=== PATIENT | male | born 1960 | race Caucasian/White ===

== ENCOUNTER 2024-01-30 15:55 | Outpatient (REF) | payer MEDICAID, SELFPAY ==
[2024-01-30 21:27] LABS: ALT 48 U/L (16-63); AST 29 U/L (15-37); Albumin 3.7 g/dL (3.4-5.0); Alkaline Phosphatase 71 U/L (46-116); Anion Gap 10.5 mmol/L (3-11); BUN 17 mg/dL (7-18); Bilirubin, Total 0.4 mg/dL (0.2-1.0); CO2 27.5 mmol/L (21.0-32.0); CREATININE 0.8 mg/dL (0.70-1.30); Calcium 9.3 mg/dL (8.5-10.1); Calculated LDL 134 mg/dL (<100); Chloride 102 mmol/L (98-107); Cholesterol 222 mg/dL (<200); Estimated GFR 98.83 (mL/min/1.73m2); Glucose 114 mg/dL (74-106); HDL Cholesterol 48 mg/dL (40-60); Potassium 4.1 mmol/L (3.5-5.1); Sodium 140 mmol/L (136-145); Total Protein 7.1 g/dL (6.4-8.2); Triglyceride 202 mg/dL (<150)
[2024-01-30 21:32] LABS: Hemoglobin A1C 6.3 % (<5.7)
== END 2024-01-30 15:56 | disposition home or self-care (01) ==
LOC: NCHCN 15:55
PROVIDERS: Visit Provider Family Medicine
DX: E11.9 Type 2 diabetes mellitus without complications (principal); E78.5 Hyperlipidemia, unspecified
CPT/HCPCS: 80053; 80061; 83036

== ENCOUNTER 2025-02-03 01:54 | Outpatient (CLI) | payer MEDICARE, SELFPAY ==
--- NOTE | 2025-02-03 | DI.RAD_ITS ---
Exam(s) XR HIP LT COMPLETE AP PELVIS EXAM: XR HIP LT COMPLETE AP PELVIS CLINICAL HISTORY: Pain in lt hip, M25.552. TECHNIQUE: 2D digital imaging was performed. Two views. COMPARISON: No exams were available for comparison FINDINGS: BONES: No acute fracture is present. There is severe flattening of the left femoral head and some re modeling of the left acetabulum. There are severe degenerative changes left hip joint with sclerosis and subchondral cysts on both sides of the joint. JOINTS: There is severe severe narrowing of the left hip joint space, with a bone on bone appearance. No dislocation present. The SI joints and pubic symphysis are intact. No significant degenerative c hanges. The right hip shows minimal degenerative changes. Minimal degenerative changes are present a t the SI joints. SOFT TISSUE: Normal. IMPRESSION: End-stage degenerative changes of the left hip. There is significant flattening of the femoral head as well as multiple subchondral cyst formation. DATA REPOSITORY: RADIATION DOSE DELIVERED:
== END 2025-02-03 02:14 ==
PROVIDERS: PCP Family Medicine; Visit Provider Family Medicine
DX: M16.12 Unilateral primary osteoarthritis, left hip (principal)
CPT/HCPCS: 73502

== ENCOUNTER 2025-02-10 15:23 | Outpatient (REF) | payer MEDICARE, SELFPAY ==
[2025-02-10 21:52] LABS: ALT 49 U/L (16-63); AST 31 U/L (15-37); Albumin 3.9 g/dL (3.4-5.0); Alkaline Phosphatase 74 U/L (46-116); Anion Gap 7.5 mmol/L (3-11); BUN 14 mg/dL (7-18); Bilirubin, Total 0.5 mg/dL (0.2-1.0); CO2 28.5 mmol/L (21.0-32.0); Calcium 9.5 mg/dL (8.5-10.1); Calculated LDL 76 mg/dL (<100); Chloride 103 mmol/L (98-107); Cholesterol 169 mg/dL (<200); Creatine Kinase 145 U/L (39-308); Estimated GFR 83.52 (mL/min/1.73m2); Glucose 148 mg/dL (74-106); HDL Cholesterol 57 mg/dL (>or=40); Potassium 3.9 mmol/L (3.5-5.1); Sodium 139 mmol/L (136-145); Total Protein 7.1 g/dL (6.4-8.2); Triglyceride 182 mg/dL (<150)
== END 2025-02-10 15:24 | disposition home or self-care (01) ==
LOC: NCHCN 15:23
PROVIDERS: PCP Family Medicine; Visit Provider Family Medicine
DX: E78.5 Hyperlipidemia, unspecified (principal); I10 Essential (primary) hypertension; M79.18 Myalgia, other site
CPT/HCPCS: 80053; 80061; 82550

== ENCOUNTER → 2025-03-04 09:55 | Outpatient (BNVA) | payer MEDICARE, SELFPAY | PROVIDERS: PCP Family Medicine; Referring Provider Family Medicine; Visit Provider Podiatrist | DX: L97.521 Non-pressure chronic ulcer of other part of left foot limited to breakdown of skin (principal); L60.3 Nail dystrophy; B35.1 Tinea unguium; R60.0 Localized edema; I87.2 Venous insufficiency (chronic) (peripheral); G62.9 Polyneuropathy, unspecified; I83.93 Asymptomatic varicose veins of bilateral lower extremities; L65.9 Nonscarring hair loss, unspecified; L53.8 Other specified erythematous conditions; L60.8 Other nail disorders; R23.8 Other skin changes; L60.2 Onychogryphosis; L85.8 Other specified epidermal thickening | CPT/HCPCS: 11721; 97597 ==

== ENCOUNTER 2025-03-05 13:56 | Outpatient (CLI) | payer MEDICARE, SELFPAY ==
--- NOTE | 2025-03-05 11:15 | DI.RAD_ITS ---
Exam(s) XR PELVIS AP EXAM: XR PELVIS AP CLINICAL HISTORY: LEFT HIP PAIN. TECHNIQUE: 2D digital imaging was performed.One images were obtained. COMPARISON: CR XR HIP LT COMPLETE AP PELVIS from 02/03/2025 FINDINGS: Findings in the left hip appears stable. There is loss of the superior joint space. There is loss o f volume of the femoral head particularly its articular surface. Subchondral cysts and flattening ar e noted. There osteophytes seen at the lateral aspect of the acetabulum. The right hip is fairly we ll maintained with minimal arthrosis. IMPRESSION: Marked deformity of the left hip which may be secondary to avascular necrosis and/or in stage degener ative changes. Posttraumatic changes or infection cannot be entirely excluded. DATA REPOSITORY: RADIATION DOSE DELIVERED:
== END 2025-03-05 13:57 | disposition home or self-care (01) ==
LOC: DIORS 13:56
PROVIDERS: PCP Family Medicine; Referring Provider Family Medicine; Visit Provider Physician Assistant
DX: M25.552 Pain in left hip (principal); M16.12 Unilateral primary osteoarthritis, left hip
CPT/HCPCS: 99214; 72170

== ENCOUNTER → 2025-03-25 11:23 | Outpatient (BNVA) | payer MEDICARE, SELFPAY | PROVIDERS: PCP Family Medicine; Referring Provider Family Medicine; Visit Provider Podiatrist | DX: L97.521 Non-pressure chronic ulcer of other part of left foot limited to breakdown of skin (principal); R60.0 Localized edema; I87.2 Venous insufficiency (chronic) (peripheral); B35.1 Tinea unguium; L60.3 Nail dystrophy; G62.9 Polyneuropathy, unspecified | CPT/HCPCS: 99213 ==

== ENCOUNTER 2025-04-27 15:02 | Outpatient (REF) | payer MEDICARE, SELFPAY ==
[2025-04-27 15:17] LABS: HCT 42.4 % (40.0-50.0); HGB 14.6 g/dL (13.5-17.5); MCH 30.8 pg (27.0-33.0); MCHC 34.4 % (32.0-36.0); MCV 90 fL (80-95); MPV 11.1 fL (8.0-11.0); Platelet Count 193 10^3/uL (130-400); RBC 4.74 10^6/uL (4.36-5.78); RDW 12.4 % (11.8-14.1); RDW-SD 41.0 fL; WBC 5.95 10^3/uL (4.4-10.8)
[2025-04-27 15:31] LABS: Anion Gap 10.1 mmol/L (3-11); BUN 18 mg/dL (7-18); CO2 27.9 mmol/L (21.0-32.0); Calcium 9.4 mg/dL (8.5-10.1); Chloride 101 mmol/L (98-107); Estimated GFR 106.46 (mL/min/1.73m2); Glucose 105 mg/dL (74-106); Potassium 3.8 mmol/L (3.5-5.1); Sodium 139 mmol/L (136-145)
== END 2025-04-27 15:03 | disposition home or self-care (01) ==
LOC: LBN 15:02
PROVIDERS: PCP Family Medicine; Visit Provider Student in an Organized Health Care Education/Training Program
DX: M16.12 Unilateral primary osteoarthritis, left hip (principal); Z01.818 Encounter for other preprocedural examination
CPT/HCPCS: 80048; 85027

== ENCOUNTER 2025-05-06 08:36 | Day surgery (SDC) | payer MEDICARE, SELFPAY ==
[2025-05-06] VITALS (37 sets, daily range): BP systolic 118–197; BP diastolic 20–94; PULSE 58–78; RESP 12–25; TEMP 36.1–36.7; O2SAT 94–100; BMI 40.8
--- NOTE | 2025-05-06 07:31 | W.PM.DSUDISC ---
Date of service: 05/06/25 Discharge Plan Disposition Patient Disposition: Home Condition: Good Discharge Details Reason For Visit: L THR Attending Provider: Erwin Mg Primary Care Provider: Yolanda Morley Home Meds and New Rx's Prescriptions: New celecoxib 200 mg capsule 200 mg PO BID Qty: 60 0RF aspirin 81 mg tablet,delayed release (DR/EC) 81 mg PO BID Qty: 60 0RF acetaminophen 500 mg tablet 1,000 mg PO TID Qty: 90 3RF pantoprazole 40 mg tablet,delayed release (DR/EC) 40 mg PO DAILY Qty: 14 0RF dexamethasone 4 mg tablet 4 mg PO DAILY Qty: 2 0RF docusate sodium 100 mg capsule 100 mg PO BID PRNQty: 28 0RF oxycodone 5 mg tablet 5 mg PO Q4H MDD 6 tabs PRN (Reason: pain) Qty: 12 0RF Continued mupirocin 2 % ointment 1 applic topical TID ketoconazole 2 % cream 1 applic topical DAILY Qty: 120 6RF Rx Instructions: Apply to toenails once daily olmesartan-hydrochlorothiazide 40-12.5 mg tablet 1 tab PO DAILY rosuvastatin 5 mg tablet 5 mg PO DAILY methocarbamol 500 mg tablet 500 mg PO BID Discontinued ibuprofen 200 mg tablet 200 mg PO Q6H PRN meloxicam 7.5 mg tablet 7.5 mg PO DAILY Discharge Instructions Additional Instructions: Total Hip Discharge Instructions Activity: The most important activity is to walk. You should try to take short walks a few times a day. You have no restrictions on movement or positioning, but do not try to force what you do. You will find some stiffness and weakness with hip flexion (lifting your knee). Do not try to strengthen this too early, continue to practice walking and stairs and this will come. - Outpatient physical therapy can be helpful to help return you to a normal gait and improve your flexibility and strength. This can start around 2 weeks. For some patients, it?s not necessary. Usually this is determined at the time of discharge or at the first post-operative visit. - You should wear the JJ hose on both legs for 2 weeks. Dressing: Keep the surgical dressing in place for at least one week. After the first week it may be removed and replace with light gauze and tape or nothing. It may get wet after 3 days but avoid soaking the dressing. If it gets wet, just lightly pat dry. It is important to always keep some gauze between skin folds, especially when you are sitting. Spend some time with the wound exposed when you are lying flat as the incision does wrinkle onto itself. Medications: - You should take Tylenol and an anti-inflammatory Celebrex as your primary pain control medications. If the Celebrex is too expensive or not covered, please call the office for another alternative (Advil/Ibuprofen or Naproxen/Aleve). - You have been prescribed a stronger pain medication Oxycodone for breakthrough pain, take as needed as prescribed. - You have also been prescribed a stomach acid reduction agent Pantoprozole to help reduce stomach acid and reflux. - You have also been prescribed Decadron to help with post-operative nausea and pain. You will take this for two days starting tomorrow. - You will be taking Aspirin 81mg twice a day for DVT prevention unless instructed otherwise. - If you have constipation you should take Colace or Miralax (both [id number]). It takes most people 3-4 days to have a bowel movement. Follow-up: 2 weeks If you have any acute concerns or questions, please do not hesitate to contact the office at [phone]. You may contact Dr. Mg with any questions after hours through the hospital at [phone] or on his cell phone at [phone]. Referrals: Erwin Mg MD [ [facility] STAFF PHYSICIAN, Orthopaedic Surgical] Equipment/Supplies: Walker Activity:: Activity as Tolerated Shower/Bathe:: 72 hours Diet:: As Tolerated Discharge Orders Discharge Orders: Discharge Order (Routine); Ordered 05/06/25 Ordered By: Chuy Feliciano DS: Diagnosis Discharge Diagnosis (1) Osteoarthritis of left hip: Status: Acute
[2025-05-06] MEDS: Celecoxib 200 MG CAP 400 MG PO (09:16)
[2025-05-06] MEDS: Acetaminophen 500 MG TAB 1000 MG PO (09:16)
[2025-05-06] MEDS: Lactated Ringers 1,000 ML 80 ML IV ×2 (09:37→14:07)
--- NOTE | 2025-05-06 10:03 | W.ANESPRE ---
General Info Date of Service Date Performed: 05/06/25 Height: 6 ft 2 in Weight: 144.5 kg Body Mass Index (BMI): 40.8 Surgical Procedure: Operation Date: 05/06/25 11:20 Proposed Procedure Side Surgeon p Hip Total Hip Anterior, ACTIS Left Erwin Mg MD Meds Allergies and Home Medications Allergies Allergy/AdvReac Type Severity Reaction Status Date / Time lisinopril AdvReac Other (See Verified 05/06/25 09:07 Comment) Home Medication ?Medication ?Instructions ?Recorded olmesartan 40 1 tab PO DAILY 02/04/25 mg-hydrochlorothiazide 12.5 mg tablet rosuvastatin 5 mg tablet 5 mg PO DAILY 02/04/25 mupirocin 2 % topical ointment 1 applic topical TID 02/19/25 ketoconazole 2 % topical cream 1 applic topical DAILY #120 grams 03/04/25 methocarbamol 500 mg tablet 500 mg PO BID 04/27/25 acetaminophen 500 mg tablet 1,000 mg (2 x 500 mg) PO TID #90 05/06/25 tabs aspirin 81 mg tablet,delayed 81 mg PO BID #60 tabs 05/06/25 release celecoxib 200 mg capsule 200 mg PO BID #60 caps 05/06/25 dexamethasone 4 mg tablet 4 mg PO DAILY #2 tabs 05/06/25 docusate sodium 100 mg capsule 100 mg PO BID PRN #28 caps 05/06/25 meloxicam 7.5 mg tablet mg 05/06/25 oxycodone 5 mg tablet 5 mg PO Q4H PRN pain #12 tabs 05/06/25 pantoprazole 40 mg tablet,delayed 40 mg PO DAILY #14 tabs 05/06/25 release Current Visit Medications: Current Medications Generic Name Dose Route Start Last Admin Trade Name Freq PRN Reason Stop Dose Admin Acetaminophen 1,000 mg 05/06/25 06:00 05/06/25 09:16 Acetaminophen 500 Mg Tab PO 05/06/25 23:59 1,000 mg PREOP HARVEY Administration Acetaminophen 1,000 mg 05/06/25 07:30 Acetaminophen 500 Mg Tab PO 06/05/25 07:29 TID PRN PRN Analgesia Celecoxib 400 mg 05/06/25 06:00 05/06/25 09:16 Celecoxib 200 Mg Cap PO 05/06/25 23:59 400 mg PREOP HARVEY Administration Docusate Sodium 100 mg 05/06/25 07:30 Docusate Sodium 100 Mg Cap PO 06/05/25 07:29 BID PRN PRN Constipation Ringer's Solution 1,000 mls @ 80 mls/hr 05/06/25 06:00 05/06/25 09:37 IV 05/06/25 23:59 80 mls/hr INFUSION HARVEY Administration Cefazolin Sodium 3,000 mg/ 100 mls @ 200 mls/hr 05/06/25 06:00 Sodium Chloride IV 05/06/25 23:59 PREOP HARVEY Tranexamic Acid/Sodium Chloride 1,000 mg in 100 mls @ 600 mls/hr 05/06/25 06:00 IVPB 05/06/25 23:59 PREOP HARVEY IV Miscellaneous Supplies 1 each 05/06/25 06:00 Iv Access IV 05/06/25 23:59 DIRECTED HARVEY Ondansetron HCl 4 mg 05/06/25 07:30 Ondansetron 4 Mg/2 Ml Vial IVP 06/05/25 07:29 Q6H PRN PRN Nausea Oxycodone HCl 0 mg 05/06/25 07:30 Oxycodone 5 Mg Tab PO 06/05/25 07:29 Q3H PRN PRN Pain Polyethylene Glycol 17 gm 05/06/25 07:30 Polyethylene Glycol 3350 17 Gm Packet PO 06/05/25 07:29 BID PRN PRN Constipation Sodium Chloride 0 ml 05/06/25 06:00 Normal Saline Flush 10 Ml Syr IV 05/06/25 23:59 PRN PRN Sodium Chloride 0 ml 05/06/25 06:00 Normal Saline 10 Ml Vial IJ 05/06/25 23:59 DIRECTED PRN Sterile Water 0 ml 05/06/25 06:00 Water,Injection,Sterile 10 Ml Vial IJ 05/06/25 23:59 DIRECTED PRN Tranexamic Acid 1,300 mg 05/06/25 07:30 Tranexamic Acid 650 Mg Tab PO 05/06/25 23:59 DIRECTED HARVEY PFSH Active Problems Active Problems: Problem Status Onset Code Osteoarthritis of left hip Acute M16.12 Ulcer of left foot, limited to breakdown of skin Acute L97.521 Peripheral neuropathy Acute G62.9 Dystrophia unguium Acute L60.3 Onychomycosis Acute B35.1 Venous insufficiency Acute I87.2 Edema Acute R60.9 Hyperlipidemia Acute E78.5 Obesity Chronic E66.9 Type 2 diabetes mellitus Acute E11.9 Hypertensive disorder Chronic I10 Onychomycosis of multiple toenails with type 2 diabetes mellitus Acute E11.69, B35.1 Tobacco Smoking/Tobacco Use Status: Never Passive smoking exposure: No Alcohol Alcohol Intake: current Alcohol intake frequency: 0-2 drinks per day Alcohol type: wine Substance Use Substance use: Never Substance use type: does not use and marijuana Details: 05/05/25 - smoked marijuana Vital Signs and Lab Results Vital Signs Most Recent Vital Signs in EMR: Most Recent Vital Signs Temp Pulse Resp BP Pulse Ox 36.6 C 58 L 14 157/62 H 96 05/06/25 09:00 05/06/25 09:00 05/06/25 09:00 05/06/25 09:00 05/06/25 09:00 Lab Results Complete Blood Count: WBC, (4.4-10.8) 5.95 10^3/uL 04/27/25, 14:40 RBC, (4.36-5.78) 4.74 10^6/uL 04/27/25, 14:40 Hgb, (13.5-17.5) 14.6 g/dL 04/27/25, 14:40 Hct, (40.0-50.0) 42.4 % 04/27/25, 14:40 Plt Count, (130-400) 193 10^3/uL 04/27/25, 14:40 Complete Metabolic Panel: Sodium, (136-145) 139 mmol/L 04/27/25, 14:40 Potassium, (3.5-5.1) 3.8 mmol/L 04/27/25, 14:40 Chloride, (98-107) 101 mmol/L 04/27/25, 14:40 Carbon Dioxide, (21.0-32.0) 27.9 mmol/L 04/27/25, 14:40 BUN, (7-18) 18 mg/dL 04/27/25, 14:40 Creatinine, (0.70-1.30) 0.6 mg/dL L 04/27/25, 14:40 Est GFR (CKD-EPI 2020), (mL/min/1.73m2) 106.46 04/27/25, 14:40 Calcium, (8.5-10.1) 9.4 mg/dL 04/27/25, 14:40 Glucose, (74-106) 105 mg/dL 04/27/25, 14:40 Anesthesia Assessment and Plan Anesthesia History Personal History: No History of Anesthesia Complications Family History: No Family History of Anesthesia Complications Exercise Tolerance Exercise Tolerance: Metabolic Equivalents>4 Pertinent Negatives Pertinent Negatives: No Symptoms of GERD Cardiac & Pulmonary Exam Cardiac Exam: Normal S1/S2 Heart Sounds Pulmonary Exam: Clear Bilateral Breath Sounds Implantable Cardiac Device Does patient have a Pacemaker or an ICD?: No Airway Exam Known Difficult Airway: No Mallampati Class: 3 Mouth Opening: Normal (> 3cm) Thyromental Distance: Greater than 3 cm Neck Range of Motion: Full ROM Neck Circumference: Thick Teeth Condition: Normal Dentition ASA Classification ASA Score: ASA 3 Emergency Case?: No NPO Status NPO Status: NPO Clears >2 hours, Solids >8 hours Anesthesia Plan Resuscitation Status: Full Code Anesthesia Technique: Spinal Anesthesia Airway Planned: Natural Airway Monitors Used: Standard Monitors
[2025-05-06] MEDS: ceFAZolin 3,000 MG in Normal Saline 100 ML 200 MG IV (11:29)
[2025-05-06] MEDS: TRANEXAMIC ACID/SOD. CHL. 1,000 MG/100 ML BAG 600 MG IVPB (11:46)
--- NOTE | 2025-05-06 13:00 | DI.RAD_ITS ---
Exam(s) XR HIP LT IN OR EXAM: XR HIP LT IN OR CLINICAL HISTORY: LEFT HIP OA TECHNIQUE: 2D and realtime digital imaging was performed. CONTRAST MATERIAL: Refer to procedure report. COMPARISON: CR XR PELVIS AP from 03/05/2025 FINDINGS: Fluoroscopy was provided for Dr. Mg during the performance of a left total hip arthroplasty. Please refer to the procedure report for complete details. Ka,r=11.4 mGy IMPRESSION: RADIATION DOSE DELIVERED: 0.0 0.0 0
[2025-05-06] MEDS: fentaNYL 100 MCG/2 ML VIAL IVP ×2 (13:36→13:44)
--- NOTE | 2025-05-06 13:51 | W.ANESPOSTOP ---
Postoperative Evaluation Date, Time and Location Date Performed: 05/06/25 Time Performed: 13:51 Patient Location: PACU Vital Signs Most Recent Imported Vital Signs: Most Recent Vital Signs Temp Pulse Resp BP Pulse Ox 36.6 C 72 14 165/92 H 94 05/06/25 13:46 05/06/25 13:46 05/06/25 13:46 05/06/25 13:46 05/06/25 13:46 Pain Score Most Recent Pain Score: Most Recent Pain Score Pain Level 8 05/06/25 13:46 Assessment Mental Status: Awake (Alert & Oriented to Patient Baseline) Airway and Respiratory Function: Patent airway with normal (patient baseline) respiratory exam Cardiovascular Function: Hemodynamically Stable Hydration Status: Adequately Hydrated Nausea & Vomiting: No Nausea or Vomiting Pain: Pain is tolerable per patient Peripheral Nerve Block: Patient did not receive a nerve block
[2025-05-06] MEDS: HYDROmorphone 2 MG/ML SYR IVP ×3 (13:58→14:21)
--- NOTE | 2025-05-06 14:09 | ROE_ITS ---
Operative Note Operative Note PRE-OP DIAGNOSIS: Left Hip Osteoarthritis POST-OP DIAGNOSIS: same PROCEDURE: Left Anterior Total Hip Arthroplasty with Intraoperative Navigation SURGEON: Erwin Mg CUFF CUTTER: Chuy Feliciano ANESTHESIA TYPE: Spinal Refer to Anesthesia Record ESTIMATED BLOOD LOSS: 300 PATHOLOGY: none sent TOURNIQUET TIME: 0 COMPLICATIONS: None Patient was transported to: PACU Patient's condition: stable Implants: 1. Depuy [place] Acetabular Component, 58mm 2. Depuy Acetabular Liner, 47g29nm 3. Depuy Actis Standard Collared Femoral Stem, Size 7 4. Depuy Altrx Ceramic Femoral Head, Size 36+5mm Indications: I have seen Uku in clinic for symptoms of hip arthritis, confirmed with radiographic findings. He has exhausted nonoperative methods and was having significant limitations in daily function and desired better function and less pain. I discussed the technical details of a hip replacement. I explained the risks of the procedure to include, but not limited to, bleeding, infection, pain, stiffness, fracture, damage to nerves and vessels, damage to muscles and tendons, loosening, instability, leg length inequality, need for repeat procedure, blood clot and cardiopulmonary demise. Despite these risks, Uku elected to proceed. Findings: There was significant signs of arthritis throughout the hip with dense synovitis, osteophytes, and deformity of the femoral head. Procedure Description: Uku was greeted in the preoperative holding area where the correct side was identified and marked. The consent was reviewed with the patient and signed. The history and physical was updated. All questions were answered. He was taken back to the operating room. A spinal anesthestic was then administered. The feet were wrapped with cast padding and Coban and then placed into the boot liners and then into the boots. Care was taken to protect the skin and make sure the heels were fully down and the boots were stable. The patient was then positioned onto the HANA table. Both legs were held in a neutral position. SCDs were applied. The patient was then slid down onto a peroneal post. Prophylactic antibiotics in the form of Cefazolin were administered. 1g of Tranxemic Acid was given intravenously within 30 minutes of incision. The left leg was then prepped with Chloraprep and draped in a standard fashion. A second prep with Chloraprep was performed prior to placement of a shower-curtain type drape with Iodine impregnated skin protection. A timeout to confirm correct identity, side and site, procedure, allergies, anesthesia, and medical concerns was performed. An obliquely oriented incision was made starting lateral to the ASIS and running distal over the Tensor Fascia La (TFL) muscle belly toward the fibular head, approximately 10cm. The skin and soft tissue was dissected sharply, through Miguel?s fascia, and to the fascia of the TFL. With the fascia and superior border of the IT band identified, the fascia was incised with a new knife just above any perforators from the IT band. The TFL muscle belly was bluntly dissected away from the fascia and moved laterally. The fat between TFL and rectus was identified to ensure the dissection was not within the TFL. Blunt dissection created space between abductors and the capsule and retractor was placed over the lateral femoral neck. The fibers of the rectus femoris tendon were identified and these were freed from the anterior capsule. A second cobra retractor was placed around the medial femoral neck. The TFL was further retracted laterally to show the deep fascia. Careful dissection through this layer identified three main crossing vessels of the lateral femoral circumflex. These were cauterized in multiple locations and then cut without any noticeable bleeding. The TFL was further released bluntly from the deep fascia to expose anterior hip capsule and fat The soft tissue orthopaedic retractor was then placed beneath the TFL and against sartorius and medial soft tissues to protect and retract the soft tissues. A T-capsulotomy was then performed starting at the superior lateral acetabulum and moving distally to the intertrochanteric ridge. These capsular flaps were tagged with a No. 1 Vicryl and elevated from within. The capsular flaps were released to the shoulder of the lateral neck and to the lesser trochanter to give excellent visualization of the proximal femur. A neck osteotomy was performed using an oscillating saw based on preoperative templates. This cut started in the shoulder and of the lateral neck and exited medially. The saw was at all times directed medially to avoid injury to the greater trochanter. Gross traction was applied to the leg and the osteotomy opened. The femoral head was removed with a corkscrew, making sure to protect the TFL on its exit. Traction was released after head removal. This was measured on the back table to determine the starting reamer size. There is notable deformity the femoral head with an overall flattened appearance with irregularity of the entire surface and minimal remnant cartilage. Portions of the rectus obscuring visualization were minimally elevated off the superior acetabulum. An anterior retractor was placed over the anterior wall between capsule and labrum and attached to the Gripper retraction system. The femur was rotated to 90 degrees and medial capsule was fully released until the lesser trochanter was palpable and visible; the femur was returned to 30 degrees. A posterior retractor was placed similarly between capsule and labrum. This provided excellent visualization. The contents of the cotyloid fossa were removed with electrocautery and the labrum was removed with a knife. There was a notable floor osteophyte. There was significant chondromalacia of the superior acetabulum. Acetabular reaming began with a 51mm reamer. This first reaming was directed anterior to posterior and medial to get down to the true floor, avoiding the superior deformity of his acetabulum. This was inspected and reamed until the true floor was reached. The anterior retractor was then released and entry and exit was provided by traction on the capsular flaps. I then reamed sequentially up to a 58mm reamer where good fit was obtained. The larger reamers were oriented based on anatomical reference of the anterior and lateral medeiros to ensure proper abduction and anteversion. Positioning and size was confirmed with the fluoroscopy. A 58mm Depuy [place] acetabular component was selected. The acetabulum was reamed around the periphery with the selected acetabular size to prevent a rim fit. The deep tissues were irrigated. The acetabular component was then impacted in a position of about 40-45 degrees of abduction and 15-20 degrees of anteversion, using the patient?s anatomy as the ultimate landmark. Fluoroscopy was used to confirm this. There was excellent ap processor of the acetabular component and the inserting handle was removed. The acetabular liner, Depuy [id number] polyethylene liner, was inserted and lined up with the tines of the acetabular component. There was no soft tissue interposition. The liner was then impacted into position and confirmed to be well-seated. A portion of the elisa-articular cocktail was then injected around the acetabulum into the capsule and periosteum. This cocktail consisted of 123mg of Ropivacaine, 0.25mg of Epinephrine, 0.04mg of Clonidine, and 15mg of Ketorolac, diluted to 50cc. The leg was rotated to 120 degrees. Any remaining medial capsule was released until the lesser trochanter was easily palpable. A retractor was placed medially. The lateral capsule was further released into the shoulder to allow access to the greater trochanter. A Vang retractor was placed over the greater trochanter which allowed the trochanter to flip in front of the capsule for excellent exposure. The leg was brought down into maximal extension and 20 degrees of adduction while ensuring there was no impingement on the acetabulum. Any remnant capsule within the trochanter was released. Piriformis and obturator externis were identified and protected. There was excellent access to the proximal femur. The lateral neck remnant was removed with a rongeur. A blunt canal probe was used to identify the canal and trajectory for later broaching. A box osteotome initiated the broach course. A small curved rasp and a curved curette were used to work laterally. Broaching then began with a starter Actis broach. This was inserted manually around the trochanter and into the canal before mallet blows. The broach was seated to a few millimeters below the cut level based on the neck cut and the preoperative template. Sequential broaching was continued with the Happy [employer] pneumatic broaching device until a tight fit was obtained with good rotational control of the femur. A trial standard neck was inserted along with a +5 trial head. The leg was brought out of extension and adduction and then reduced with traction and internal rotation. The leg was stable anteriorly in a position of 30 degrees of extension and 90 degrees of external rotation. Fluoroscopy was used to ensure there was no fracture and the stem was seated well. Leg lengths were checked with an AP pelvis and pelvic reference points. [employer] navigation system was used to confirm appropriate positioning and leg length and offset. Once content with the desired offset and leg lengths, the leg was brought back into extension, external rotation and adduction. The periosteum and surrounding tissue was injected with remaining portion of the elias-articular cocktail. The proximal femur was irrigated as well as the deep tissues. The Depuy Actis standard collared stem, size 7, was then manually inserted into the proximal femur making sure to control rotation. It was then malleted into position with light blows, giving breaks to allow bone expansion and decrease risk of fracture. The selected Depuy Altrx Ceramic Head, size 36+5mm, was then placed onto the clean and dry trunnion and secured with impaction onto the tapered fit. The leg was brought back out of extension and adduction and reduced with traction and internal rotation. Stability was confirmed with no shuck at 90 degrees of external rotation and 30 degrees of extension. No impingement through range of motion arc. Final x-ray images were obtained with fluoroscopy to confirm adequate positioning and no intraoperative fracture. The deep tissues were thoroughly irrigated with Surgiphor, betadine solution. This was allowed to sit in the wound for 3 minutes before being thoroughly irrigated out with normal saline. The capsule was then reapproximated with the previously placed sutures. The TFL fascia was finally closed with a No. 2 Stratafix, barbed suture. Deep tissues were then reapproximated with 0 Vicryl and a running 2-0 Vicryl. The skin was closed with a running 4-0 Monocryl in a subcuticular fashion. This was reinforced with skin glue. A Mepilex silver dressing was applied. At the end of the case, all counts were correct. Uku was transferred to the hospital bed without difficulty and suffering no apparent complication. He has a good prognosis. Physical therapy will start today and without restrictions, weight-bearing as tolerated. Aspirin 81mg BID will be used for DVT prophylaxis. Date of Procedure: 05/06/25
[2025-05-06] MEDS: Tranexamic Acid 650 MG TAB 1300 MG PO (15:20)
--- NOTE | 2025-05-06 15:34 | PT.INIE ---
PT Notes Visit Reasons: L THR Physical Therapy Day Surgery Initial Evaluation Date: 05/06/2025 Referring Doctor: GT Manuel PT Orders: PT CONSULT: S/P Ortho Surgery Precautions: WBAT through left LE with AD per Dr. Mg.. Patient Profile/Admitting Diagnosis: Anh is a 65-year-old male with primary unilateral osteoarthritis of the left hip status post left total hip arthroplasty on postoperative day 0. PMHX: All Active Problems Osteoarthritis of left hip (Acute) Ulcer of left foot, limited to breakdown of skin (Acute) Peripheral neuropathy (Acute) Dystrophia unguium (Acute) Onychomycosis (Acute) Venous insufficiency (Acute) Edema (Acute) Hyperlipidemia (Acute) Obesity (Chronic) Type 2 diabetes mellitus (Acute) Hypertensive disorder (Chronic) Onychomycosis of multiple toenails with type 2 diabetes mellitus (Acute) Social History/Home Situation: Lives with SO in a private home with 3 steps to enter with a post on one side patient could hold onto. Musician. Equipment Owned/DME: [employer] Subjective: Pleasant and cooperative. Denied headache, chest pain, and lightheadedness throughout session. Objective: General Observation: IV through R UE. TEDS to B legs and feet. SO Dominique present in room thorughout session. Mental Status: A and O x 4 Pain: 2-3/10 in the L hip ROM: Right Lower Extremity: Hip flexion WFL. Hip abduction WFL. Knee flexion WFL. Ankle dorsiflexion WFL. Ankle plantarflexion WFL. Left Lower Extremity: Hip flexion WFL. Hip abduction WFL. Knee flexion WFL. Ankle dorsiflexion WFL. Ankle plantarflexion WFL. Strength: Right Lower Extremity: Hip flexors 5/5. Hip abductors 5/5. Knee flexors 5/5. Knee extensors 5/5. Ankle dorsiflexors 5/5. Ankle plantarflexors 5/5. Left Lower Extremity:Hip flexors 4/5. Hip abductors 4/5. Knee flexors 5/5. Knee extensors 4-/5. Ankle dorsiflexors 5/5. Ankle plantarflexors 5/5. Sensation: Intact as to pain and light pressure in bilateral lower extremities Bed Mobility/Transfers: Minimal cueing provided for use of B hands as needed for support, movement sequence, AD management, and posture to reduce fall risk and minimize pain report Sit to stand standby assist with bariatric FWW Stand to sit standby assist with bariatric FWW Bed to chair standby assist with bariatric FWW Gait: Facilitated bed performance of level surface ambulation covering a distance of 150 feet with reciprocal swing through heel-toe gait pattern requiring standby assist and minimal verbal cueing for AD management, limb movement sequence, hand placement, weight distribution, and posture to minimize pain reported and reduce fall risk. Stairs: Patient with safe requiring alteration of 3 x 4 inch steps in 2 x 6 inch steps while holding onto one rail and using a single-point cane on the other side with step to gait pattern requiring only contact-guard assist and minimal verbal cueing for the movement sequence, area management, hand placement, and posture to minimize pain report and reduce fall risk. Balance: Static Sitting: Normal Dynamic Sitting: Normal Static Standing: Fair Dynamic Standing: Fair Special Tests: Mobility Limitations Standardized Measure [facility] 6 clicks Basic Mobility Inpatient Short Form: Raw Score: 23 CMS Score: 11% deficit Informed Consent/Education: Patient instructed in purpose of PT consult. Packet containing CRISTIANA exercise protocol has been given to patient. Education and training on initial set of exercises that can be done at home have been completed with patient. Trained patient with correct performance of exercises below to maximize motor control, joint flexibility, soft tissue extensibility of the L hip musculature to facilitate return to independent functional mobility performance. Access Code: [email or web address] URL: [email or web address] Date: 05/06/2025 Prepared by: Esther Alonso Exercises - Gluteal Sets - 1 x daily - 7 x weekly - 1 sets - 10 reps - 5 hold - Supine Heel Slide - 1 x daily - 7 x weekly - 1 sets - 10 reps - 5 hold - Supine Ankle Pumps - 1 x daily - 7 x weekly - 1 sets - 10 reps - 5 hold - Seated March - 1 x daily - 7 x weekly - 1 sets - 10 reps - 5 hold - Seated Long Arc Quad - 1 x daily - 7 x weekly - 1 sets - 10 reps - 5 hold Assessment: Patient requires the use of a front walker for mobility ADL performance to maximize independence and reduce fall risk, Patient presents with clinical signs and symptoms consistent with current/admitting diagnoses that have resulted to mobility limitations, gait instability, generalized weakness, and impairment of motor control as demonstrated by the following impairment level findings: 1. Decreased strength to left knee major muscle groups 2. Impaired standing balance 3. Limitation of joint range of motion in left knee Impairments are contributing to the following functional limitations: 1. Inability to safely ambulate without assistive device 2. Increase completion time for mobility ADL performance 3. Increased fall risk Patient is assessed as a 76284 moderate complexity based on the following: History: 65-year-old male with impairment level findings, functional limitations, and past medical history as indicated above Examination: Demonstrable impairment in strength, balance, and mobility level with underlying impairments and functional limitations as documented above Presentation: Evolving Decision Makin moderate complexity Goals: N/A. PT evaluation and 1-2 treatment sessions only for functional mobility training using recommended AD and for HEP instruction. Plan of Care/Treatment Plan: N/A. PT evaluation and 1-2 treatment session only for functional mobility training using recommended AD and for HEP instruction. DISCHARGE RECOMMENDATIONS: Home when medically cleared by orthopedic surgeon. Recommend outpatient PT services in order to optimize functional mobility outcomes and facilitate return to independent community ambulation without an assistive device. TREATMENT CODE/TIME: 37381 x 28 minutes for 1 unit (15:34-16:12). Thank you for the opportunity to participate in the care of this patient. Esther Alonso PT, DPT, CLT [facility] [place], [place]
== END 2025-05-06 16:37 | disposition home or self-care (01) ==
PROVIDERS: PCP Family Medicine; Visit Provider Student in an Organized Health Care Education/Training Program
PROC: (CPT 27130; principal; 2025-05-06 11:00)
DX: M16.12 Unilateral primary osteoarthritis, left hip (principal)
CPT/HCPCS: 20985; 27130; 97162; 73501; C1776; J0690; J1100; J1171; J2003; J2250; J2401; J2405; J2704; J3010

== ENCOUNTER 2025-05-21 13:17 | Outpatient (CLI) | payer MEDICARE, SELFPAY ==
--- NOTE | 2025-05-21 13:00 | DI.RAD_ITS ---
Exam(s) XR HIP LT COMPLETE AP PELVIS EXAM: XR HIP LT COMPLETE AP PELVIS INDICATION: F/U LEFT CRISTIANA. COMPARISON: CR XR PELVIS AP from 03/05/2025 XA XR HIP LT IN OR from 05/06/2025 TECHNIQUE: 2D digital imaging was performed. Three views. FINDINGS: There is stable alignment of the left hip prosthesis. There are no abnormal surrounding lucencies. The right hip joint space is maintained. IMPRESSION: Stable appearance of left hip prosthesis. DATA REPOSITORY: RADIATION DOSE DELIVERED:
== END 2025-05-21 13:18 | disposition home or self-care (01) ==
LOC: DIORS 13:18
PROVIDERS: PCP Family Medicine; Referring Provider Family Medicine; Visit Provider Physician Assistant
DX: Z47.1 Aftercare following joint replacement surgery (principal); Z96.642 Presence of left artificial hip joint
CPT/HCPCS: 99024; 73502

== ENCOUNTER → 2025-06-25 13:09 | Outpatient (BNVA) | payer MEDICARE, SELFPAY | PROVIDERS: PCP Family Medicine; Referring Provider Family Medicine; Visit Provider Student in an Organized Health Care Education/Training Program | DX: Z47.1 Aftercare following joint replacement surgery (principal); Z96.642 Presence of left artificial hip joint | CPT/HCPCS: 99024 ==

== ENCOUNTER → 2025-07-22 10:52 | Outpatient (BNVA) | payer MEDICARE, SELFPAY | PROVIDERS: PCP Family Medicine; Referring Provider Family Medicine; Visit Provider Podiatrist | DX: L60.3 Nail dystrophy (principal); B35.1 Tinea unguium; E11.42 Type 2 diabetes mellitus with diabetic polyneuropathy; R60.0 Localized edema; I87.2 Venous insufficiency (chronic) (peripheral); I83.93 Asymptomatic varicose veins of bilateral lower extremities; L65.9 Nonscarring hair loss, unspecified; L53.8 Other specified erythematous conditions; R23.4 Changes in skin texture; L60.2 Onychogryphosis; L60.8 Other nail disorders | CPT/HCPCS: 11721 ==